=== PATIENT | male | born 1975 | race Caucasian/White ===

== ENCOUNTER 2024-02-08 03:48 | Inpatient (IN) | payer MEDICAID ==
[~2024-02-08] VITALS: Ht 170.2 cm; Wt 90.3 kg
[2024-02-08] MEDS ORDERED: LORAZEPAM INJ 2 MG/ML VIAL ONE (04:40)
[2024-02-08] MEDS: LORAZEPAM INJ 2 MG/ML VIAL IV ONE (04:41)
[2024-02-08] MEDS: IV NS 0.9% 1,000 ML BAG IV ONE ×2 (04:41→05:47)
[2024-02-08 04:57] LABS: BASOPHILS # (AUTO) 0.1 K/uL (0.0-0.2); BASOPHILS % (AUTO) 0.3 % (0.0-2.0); HEMATOCRIT 45 % (39-51); HEMOGLOBIN 15.1 g/dL (13.5-17.5); LYMPHOCYTES # (AUTO) 0.5 K/uL (0.8-4.8); LYMPHOCYTES % (AUTO) 3.3 % (20.0-44.0); MEAN CORPUSCULAR HEMOGLOBIN 31 PG (26.0-33.0); MEAN CORPUSCULAR HGB CONC 33 g/dl (31.0-36.0); MEAN CORPUSCULAR VOLUME 91 fL (80-96); MONOCYTES # (AUTO) 1.9 K/uL (0.1-1.30); MONOCYTES % (AUTO) 12.5 % (2.0-12.0); NEUTROPHILS % (AUTO) 83.9 % (43.0-81.0); PLATELET COUNT (AUTO) 244 K/uL (150-450); RED BLOOD CELL COUNT(AUTO) 4.94 MIL/uL (4.5-6.0); RED CELL DISTRIBUTION WIDTH 13.7 % (11.5-15.0); WHITE BLOOD COUNT (AUTO) 15.5 K/uL (4.3-11.0)
[2024-02-08] MEDS ORDERED: INSULIN REGULAR, HUMAN 100 UNIT/ML 10 ML VIAL ONE (05:02)
[2024-02-08 05:05] LABS: CALCIUM, SERUM 9.2 mg/dL (8.5-10.1); CARBON DIOXIDE 16 mmol/L (21-32); CHLORIDE 95 mmol/L (98-107); CREATININE 2.5 mg/dL (0.6-1.3); GLUCOSE 346 mg/dL (74-106); LIPASE 162 U/L (16-77); MAGNESIUM 2.7 mg/dL (1.8-2.4); POTASSIUM 3.1 mmol/L (3.5-5.1); SODIUM SERUM 136 mmol/L (136-145); UREA NITROGEN, BLOOD 26 mg/dL (7-18)
[2024-02-08 05:06] LABS: ALCOHOL, BLOOD < 3 mg/dL (0-10)
[2024-02-08] MEDS: INSULIN REGULAR, HUMAN 100 UNIT/ML 10 ML VIAL IV ONE (05:07)
[2024-02-08 05:10] LABS: ALANINE AMINOTRANSFERASE 43 U/L (12-78); ALBUMIN 4.3 g/dL (3.4-5.0); ALKALINE PHOSPHATASE 78 U/L (46-116); ASPARTATE AMINOTRANSFERASE 50 U/L (15-37); BILIRUBIN,DIRECT 0.4 mg/dL (0.0-0.2); BILIRUBIN,TOTAL 2.2 mg/dL (0.2-1.0); TOTAL PROTEIN, SERUM 8.2 g/dL (6.4-8.2)
[2024-02-08 05:15] LABS: ACETONE, SERUM NEGATIVE (NEGATIVE)
[2024-02-08] MEDS ORDERED: MAG HYDROX/AL HYDROX/SIMETH 30 ML UDC PO PRN (07:00)
[2024-02-08] MEDS ORDERED: IV NS 0.9% 1,000 ML BAG IV ONE (07:00)
[2024-02-08] MEDS ORDERED: ACETAMINOPHEN 325 MG TABLET PO PRN (07:00)
[2024-02-08] MEDS ORDERED: MAGNESIUM HYDROXIDE 30 ML UDC PO PRN (07:00)
[2024-02-08] MEDS ORDERED: DEXTROSE 50%-WATER 50 ML DISP.SYRIN IV PRN (07:00)
[2024-02-08] MEDS ORDERED: LORAZEPAM INJ 2 MG/ML VIAL IV PRN (07:00)
[2024-02-08] MEDS ORDERED: ONDANSETRON HCL/PF 4 MG/2 ML VIAL IVP PRN (07:00)
[2024-02-08] MEDS ORDERED: LISI2.5T2 PO (07:27)
[2024-02-08] MEDS ORDERED: FAMO20TA80 PO (07:27)
[2024-02-08] MEDS ORDERED: TRAZ-257 PO (07:27)
[2024-02-08] MEDS ORDERED: EMPA25TA PO (07:27)
[2024-02-08] MEDS ORDERED: METF-442 PO (07:27)
[2024-02-08 08:07] LABS: CALCIUM, SERUM 9.5 mg/dL (8.5-10.1); CREATININE 2.5 mg/dL (0.6-1.3); POTASSIUM 3.3 mmol/L (3.5-5.1)
[2024-02-08] MEDS ORDERED: PANTOPRAZOLE 40 MG VIAL IV SCH (09:00)
[2024-02-08 10:30] VITALS: BP 143/97; TEMP 97.6; O2SAT 96
[2024-02-08] MEDS: Folic acid 1 MG in IV D5W 50 ML IV SCH (10:34)
[2024-02-08] MEDS: IV NS 0.9% 1,000 ML IV SCH (10:34)
[2024-02-08] MEDS: GABAPENTIN 100 MG CAPSULE PO SCH (10:36)
[2024-02-08] MEDS: CHLORDIAZEPOXIDE HCL 25 MG CAPSULE PO SCH (10:37)
[2024-02-08] MEDS: PANTOPRAZOLE 40 MG TABLET.DR PO SCH (10:38)
[2024-02-08 11:00] LABS: CALCIUM, SERUM 8.7 mg/dL (8.5-10.1); CREATININE 1.2 mg/dL (0.6-1.3); POTASSIUM 3.3 mmol/L (3.5-5.1)
[2024-02-08] MEDS: Thiamine 100 MG in IV D5W 50 ML IV SCH (11:20)
[2024-02-08] MEDS: POTASSIUM CHLORIDE 20 MEQ POWDER PACKET PO ONE (11:44)
[2024-02-08] MEDS: BLOOD SUGAR DIAGNOSTIC 1 EACH STRIP IN SCH (11:45)
[2024-02-08] MEDS: INSULIN REGULAR, HUMAN 100 UNIT/ML 3 ML VIAL SQ PRN (11:53)
== END 2024-02-08 17:16 | disposition left against medical advice (07) | DRG 420 ==
LOC: ER 03:52 → TELE1 08:23
PROVIDERS: ADMIT Internal Medicine; ATTEND Internal Medicine
DX: E11.10 Type 2 diabetes mellitus with ketoacidosis without coma (principal); N17.0 Acute kidney failure with tubular necrosis; G92.9 Unspecified toxic encephalopathy; K85.90 Acute pancreatitis without necrosis or infection, unspecified; E11.22 Type 2 diabetes mellitus with diabetic chronic kidney disease; F10.229 Alcohol dependence with intoxication, unspecified; N18.9 Chronic kidney disease, unspecified; Z79.84 Long term (current) use of oral hypoglycemic drugs; Z79.899 Other long term (current) drug therapy; E11.65 Type 2 diabetes mellitus with hyperglycemia; E87.6 Hypokalemia; E87.1 Hypo-osmolality and hyponatremia; F10.239 Alcohol dependence with withdrawal, unspecified; Z79.4 Long term (current) use of insulin; M89.8X9 Other specified disorders of bone, unspecified site; Y90.0 Blood alcohol level of less than 20 mg/100 ml
CPT/HCPCS: 36415; 71045-TC; 76770-TC; 80048-TC; 80076-TC; 82010-TC; 82962-TC; 83690-TC; 83735-TC; 84484-TC; 85025-TC; A4223; G0378; G0480; J1815; J2060; J3411; J3490; J7030; J7060